=== PATIENT | female | born 1995 | race Two or more races ===

== ENCOUNTER 2018-02-12 12:27 | Emergency (ER) | payer SELFPAY ==
[~2018-02-12] VITALS: Ht 160 cm; Wt 90.7 kg
[2018-02-12 12:45] VITALS: BP 117/67
--- NOTE | 2018-02-12 13:05 | RAD ---
3 view right ankle 02/12/2018 CLINICAL INDICATION: Fall with twisting of the right ankle with pain and swelling. Unable to bear weight. COMPARISON: Right ankle 09/10/2010 FINDINGS: No acute fracture or traumatic malalignment. Joint spaces maintained. Or, mortise and talar dome maintained. Visualized soft tissues are unremarkable. IMPRESSION: No acute osseous abnormality. Electronically signed by: Patrick Nicole MD (02/12/2018 1:02 PM) [id number]
--- NOTE | 2018-02-12 13:22 | PHYS DOC ---
Past Medical History Past Medical History: Other Additional Past Medical Histor: ITP Past Surgical History: Tonsillectomy Alcohol Use: None Drug Use: None Adult General Chief Complaint Chief Complaint: ANKLE PROBLEM HPI HPI Patient is a 22 year old female who presents with pain to her right ankle after she was at [employer] earlier today playing with her daughter in [employer] [place]. She states that she missed a step rolling her ankle. She states that there was a popping sensation. She states that she has injured that ankle previously. She denies loss of consciousness or any other injury. She states that it is too painful to bear weight on that extremity right now. She did not take any [id number] pain medication prior to arrival. Review of Systems Review of Systems Constitutional: Denies fever or chills [] Eyes: Denies change in visual acuity, redness, or eye pain [] HENT: Denies nasal congestion or sore throat [] Respiratory: Denies cough or shortness of breath [] Cardiovascular: No additional information not addressed in HPI [] GI: Denies abdominal pain, nausea, vomiting, bloody stools or diarrhea [] : Denies dysuria or hematuria [] Musculoskeletal: See history of present illness Integument: Denies rash or skin lesions [] Neurologic: Denies headache, focal weakness or sensory changes [] Endocrine: Denies polyuria or polydipsia [] All other systems were reviewed and found to be within normal limits, except as documented in this note. Current Medications Current Medications Current Medications Medications (Trade) Dose Ordered Sig/[facility] Start Time Stop Time Status Last Admin Dose Admin Ibuprofen (Motrin) 800 mg 1X ONCE 02/12/18 13:30 02/12/18 13:31 UNV Allergies Allergies Allergies Coded Allergies Type Severity Reaction Last Updated Verified Penicillins Allergy Intermediate 12/17/14 No Physical Exam Physical Exam Constitutional: Well developed, well nourished, no acute distress, non-toxic appearance. [] HENT: Normocephalic, atraumatic, bilateral external ears normal, oropharynx moist, no oral exudates, nose normal. [] Eyes: PERRLA, EOMI, conjunctiva normal, no discharge. [] Neck: Normal range of motion, no tenderness, supple, no stridor. [] Cardiovascular:Heart rate regular rhythm, no murmur [] Lungs & Thorax: Bilateral breath sounds clear to auscultation [] Abdomen: Bowel sounds normal, soft, no tenderness, no masses, no pulsatile masses. [] Skin: Warm, dry, no erythema, no rash. [] Back: No tenderness, no CVA tenderness. [] Extremities: Right ankle tenderness, no cyanosis, no clubbing, ROM decreased due to pain, no edema or ecchymosis noted. [] Neurologic: Alert and oriented X 3, normal motor function, normal sensory function, no focal deficits noted. [] Psychologic: Affect normal, judgement normal, mood normal. [] Current Patient Data Vital Signs Vital Signs Date Time Temp Pulse Resp B/P (MAP) Pulse Ox O2 Delivery O2 Flow Rate FiO2 02/12/18 12:45 98.2 102 20 117/67 (84) 97 Room Air 98.2 EKG EKG [] Radiology/Procedures Radiology/Procedures []PATIENT: MARGARITO BRADLEY DACCOUNT: [id number]#: [id number] : 1995 LOCATION: ER AGE: 22 SEX: F EXAM STATUS: REG ER ORD. PHYSICIAN: JAMILA PEÑA APRN REASON: fellon a step today, twisted ankle, unable to bear weight PROCEDURE: ANKLE RIGHT 3V 3 view right ankle 02/12/2018 CLINICAL INDICATION: Fall with twisting of the right ankle with pain and swelling. Unable to bear weight. COMPARISON: Right ankle 09/10/2010 FINDINGS: No acute fracture or traumatic malalignment. Joint spaces maintained. Or, mortise and talar dome maintained. Visualized soft tissues are unremarkable. IMPRESSION: No acute osseous abnormality. Electronically signed by: Barney Nicole MD (02/12/2018 1:02 PM) [id number] DICTATED and SIGNED BY: BARNEY NICOLE MD DATE: 02/12/18 1301 Course & Med Decision Making Course & Med Decision Making Pertinent Labs and Imaging studies reviewed. (See chart for details) []The patient was placed in an Liu wrap by the emergency department nurse. Neurovascular status was intact post-application. Dragon Disclaimer Dragon Disclaimer This electronic medical record was generated, in whole or in part, using a voice recognition dictation system. Departure Departure Impression: Primary Impression: Ankle sprain Disposition: 01 HOME, SELF-CARE Condition: STABLE Referrals: DAVID SARMIENTO MD (PCP) FARIBA GODDARD MD Patient Instructions: Ankle Sprain Additional Instructions: RICE the extremity. You may use ibuprofen or Tylenol for pain. Follow-up with your primary care provider for possible referral to orthopedics if not improving in 3 days or return to the emergency department if worsening. JAMILA PEÑA ORTHO ASSISTANT Feb 12, 2018 13:22
[2018-02-12] MEDS ORDERED: IBUPROFEN 400 MG TABLET. PO ONE (13:30)
== END 2018-02-12 13:35 | disposition home or self-care (01) ==
LOC: ER 12:27
DX: S93.491A Sprain of other ligament of right ankle, initial encounter (principal); Z90.89 Acquired absence of other organs; Z88.0 Allergy status to penicillin; X50.1XXA Overexertion from prolonged static or awkward postures, initial encounter; Y93.89 Activity, other specified; Y92.39 Other specified sports and athletic area as the place of occurrence of the external cause; Y99.8 Other external cause status
CPT/HCPCS: 73610; 99284

== ENCOUNTER → 2019-05-15 | Outpatient (CLI) | payer OTHER ==
[2018-12-10 17:10] VITALS: BP 175/87
[~2019-05-15] MED LIST: CLIN150C14 PO
--- NOTE | 2019-05-15 17:28 | KCIC ---
MR of the right knee HISTORY: Positive Maddie. Instability. Medial knee pain. Injury April 19. TECHNIQUE: Routine multiplanar sequences are obtained. FINDINGS: No evidence of medial meniscal tear. No evidence of lateral meniscal tear. Anterior and posterior cruciate ligaments are intact. High-grade tear of the proximal medial collateral ligament. The tear also involves the deep capsular meniscofemoral attachment. Mild edema/hemorrhage along the medial collateral ligament. Iliotibial band unremarkable. Fibular collateral ligament, biceps femoris tendon and popliteus tendon are intact. Patellar tendon and quadriceps tendon are intact. Tearing of the femoral aspect of the medial retinaculum and medial patellofemoral ligament. Trace joint effusion. Subchondral marrow contusion at the posterior nonweightbearing lateral femoral condyle with a minimal impacted subchondral fracture. No aggressive bone destruction. No significant Mcneal's cyst. IMPRESSION: 1. High-grade proximal medial collateral ligament tear. Tearing also involves the femoral attachment of the medial retinaculum and medial patellofemoral ligament. 2. Minimally depressed subchondral fracture at the posterior nonweightbearing lateral femoral condyle. Electronically signed by: Quintin Elder MD (05/15/2019 5:25 PM) [facility]-[id number]
== END | disposition home or self-care (01) ==
LOC: KCIC MRI 15:19
PROVIDERS: ATTEND Physician Assistant Medical
DX: S72.421A Displaced fracture of lateral condyle of right femur, initial encounter for closed fracture (principal); S83.411A Sprain of medial collateral ligament of right knee, initial encounter; S83.8X1A Sprain of other specified parts of right knee, initial encounter; X58.XXXA Exposure to other specified factors, initial encounter; Y93.89 Activity, other specified; Y92.89 Other specified places as the place of occurrence of the external cause; Y99.8 Other external cause status
CPT/HCPCS: 73721

== ENCOUNTER 2020-04-24 12:54 | Emergency (ER) | payer OTHER ==
[~2020-04-24] VITALS: Ht 160 cm; Wt 100.0 kg
[~2020-04-24 12:54] MED LIST changes: -CLIN150C14 PO; +CLIN150C15 PO
[2020-04-24 13:07] VITALS: BP 153/88
[2020-04-24] MEDS ORDERED: methylPREDNISolone SOD SUCC PF 125 MG/2 ML VIAL. IM ONE (13:30)
[2020-04-24] MEDS ORDERED: KETOROLAC 60 MG/2 ML VIAL. IM ONE (13:30)
[2020-04-24] MEDS ORDERED: PRED50TA PO (13:44)
--- NOTE | 2020-04-24 13:45 | PHYS DOC ---
Past Medical History Past Medical History: No Pertinent History, Migraines, Other Additional Past Medical Histor: ITP Past Surgical History: Tonsillectomy Smoking Status: Never Smoker Alcohol Use: None Drug Use: None General Adult EDM: Chief Complaint: HEADACHE HPI: HPI: Patient is a 25 year old female with history of migraine headaches presenting today complaining of 4 out of 10 left-sided migraine headache that has been going on intermittently since Saturday. Patient denies any nausea vomiting. Reports photophobia. Reports this migraine headache is consistent with her chronic migraine headaches. 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 She states this amitriptyline is not helping. Denies this being the worst headache in her life. Denies any vision changes. Review of Systems: Review of Systems: Constitutional: Denies fever or chills. [] Eyes: Denies change in visual acuity. [] HENT: Denies nasal congestion or sore throat. [] Respiratory: Denies cough or shortness of breath. [] Cardiovascular: Denies chest pain or edema. [] GI: Denies abdominal pain, nausea, vomiting, bloody stools or diarrhea. [] : Denies dysuria. [] Musculoskeletal: Denies back pain or joint pain. [] Integument: Denies rash. [] Neurologic: Reports left-sided migraine headache, denies focal weakness or sensory changes. [] Psychiatric: Denies depression or anxiety. [] Heart Score: Risk Factors: Risk Factors: DM, Current or recent (<one month) smoker, HTN, HLP, family history of CAD, obesity. Risk Scores: Score 0 - 3: 2.5% MACE over next 6 weeks - Discharge Home Score 4 - 6: 20.3% MACE over next 6 weeks - Admit for Clinical Observation Score 7 - 10: 72.7% MACE over next 6 weeks - Early Invasive Strategies Current Medications: Current Medications Medications (Trade) Dose Ordered Sig/[facility] Start Time Stop Time Status Last Admin Dose Admin Ketorolac Tromethamine (Toradol Im) 60 mg 1X ONCE 04/24/20 13:30 04/24/20 13:31 DC 04/24/20 13:34 60 MG Methylprednisolone Sodium Succinate (SOLU-Medrol 125MG VIAL) 125 mg 1X ONCE 04/24/20 13:30 04/24/20 13:31 DC 04/24/20 13:34 125 MG Allergies: Allergies: Allergies Coded Allergies Type Severity Reaction Last Updated Verified Penicillins Allergy Intermediate 12/17/14 No Physical Exam: PE: Constitutional: Well developed, well nourished, no acute distress, non-toxic appearance. [] HENT: Normocephalic, atraumatic, bilateral external ears normal, oropharynx moist, no oral exudates, nose normal. [] Eyes: PERRLA, EOMI, conjunctiva normal, no discharge. [] Neck: Normal range of motion, no tenderness, supple, no stridor. [] Cardiovascular:Heart rate regular rhythm, no murmur [] Lungs & Thorax: Bilateral breath sounds clear to auscultation [] Abdomen: Bowel sounds normal, soft, no tenderness, no masses, no pulsatile masses. [] Skin: Warm, dry, no erythema, no rash. [] Back: No tenderness, no CVA tenderness. [] Extremities: No tenderness, no cyanosis, no clubbing, ROM intact, no edema. [] Neurologic: Alert and oriented X 3, normal motor function, normal sensory function, no focal deficits noted. Cranial nerves II through XII intact Psychologic: Affect normal, judgement normal, mood normal. [] Current Patient Data: Vital Signs: Vital Signs Date Time Temp Pulse Resp B/P (MAP) Pulse Ox O2 Delivery O2 Flow Rate FiO2 04/24/20 13:07 98.2 98 18 153/88 (109) 99 98.2 EKG: EKG: [] Radiology/Procedures: Radiology/Procedures: [] Course & Med Decision Making: Course & Med Decision Making Pertinent Labs and Imaging studies reviewed. (See chart for details) This is a 35-year-old female patient with history of migraine headaches pr esenting today complaining of a migraine headache intermittently since Saturday which is 3 days ago. Stretching with triptan with no relief. Was given Toradol and Solu-Medrol in the ED. Instructed to take Benadryl as soon as she gets home. Currently has no nausea or vomiting. Does not have neurological deficits. Discharge to home. Follow-up with PCP in the course of this week Chris Disclaimer: Chris Disclaimer: This electronic medical record was generated, in whole or in part, using a voice recognition dictation system. Departure Departure Impression: Primary Impression: Migraine headache Qualified Codes: G43.009 - Migraine without aura, not intractable, without status migrainosus Disposition: 01 DC HOME SELF CARE/HOMELESS Condition: STABLE Referrals: SARAH MORA PA-C (PCP) follow up in the course of this week Patient Instructions: Migraine Headache, [id number] Additional Instructions: You were evaluated in the emergency room for a migraine headache. Continue taking sumatriptan as needed for the headache. We also put you on a short course of prednisone. You can take it for the next 5 days and see if it helps with headaches. Follow-up with your doctor in the course of this week. Scripts Prednisone (PREDNISONE) 50 Mg Tablet 1 MG PO DAILY, #5 TAB Prov: ELIO POOLE APRN 04/24/20 ELIO POOLE APRN Apr 24, 2020 13:44
== END 2020-04-24 13:47 | disposition home or self-care (01) ==
LOC: ER 12:54
DX: G43.009 Migraine without aura, not intractable, without status migrainosus (principal); H53.149 Visual discomfort, unspecified; Z90.89 Acquired absence of other organs
CPT/HCPCS: 96372; 99284; J1885; J2930

== ENCOUNTER → 2020-04-28 | Outpatient (CLI) | payer OTHER ==
[2020-04-24 13:07] VITALS: BP 153/88
[~2020-04-28] MED LIST changes: +CETI10TA74 PO; +ORPH100T PO; +OXYC1TAB15 PO; +OXYM30SP25 NS; +PRED50TA PO
--- NOTE | 2020-04-28 16:31 | KCIC ---
MRI BRAIN WO Date: 04/28/2020 1:45 PM Indication: Reason: HEADACHE/HEAD INJURY / Spl. Instructions: Some left sided facial tingling. / His tory: Head trauma 11 yrs ago. Chronic chatman's but more intense in recent mths. Comparison: None. Technique: Multiplanar multisequence MRI of the brain was performed without intravenous contrast usin g the standard protocol. Findings: No acute infarct. No acute or chronic hemorrhage. The ventricles are normal in size and configuration without hydrocephalus. The scalp and calvarium are normal. The pituitary and sella are normal. No Chiari malformation. The v isualized upper cervical spine is normal. The visualized orbits and globes are normal. The visualized paranasal sinuses are clear. The mastoid air cells are clear. Normal flow voids within the vertebral, basilar, and internal carotid arteries indicating patency. IMPRESSION: No acute intracranial process. Electronically signed by: Reece Mensah MD (04/28/2020 4:28 PM) [id number]
== END ==
LOC: KCIC MRI 13:14
PROVIDERS: ATTEND Family Medicine
DX: R51.9 Headache, unspecified (principal); Z87.828 Personal history of other (healed) physical injury and trauma
CPT/HCPCS: 70551

== ENCOUNTER → 2020-06-28 | Outpatient (CLI) | payer OTHER ==
[~2020-06-28] MED LIST changes: -CETI10TA74 PO; -ORPH100T PO; -OXYC1TAB15 PO; -OXYM30SP25 NS
--- NOTE | 2020-06-28 16:54 | KCIC ---
EXAMINATION: XR EXAM OF ANKLE_RIGHT 3VIEWS, XR FOOT_RIGHT 3 VIEWS CLINICAL HISTORY: Right foot and ankle pain following twisting injury/fall TECHNIQUE: XR EXAM OF ANKLE_RIGHT 3VIEWS, XR FOOT_RIGHT 3 VIEWS Number of Images/Views: 3 each COMPARISON: Right ankle radiographs 02/12/2018 FINDINGS: Joint spaces and alignment maintained. No acute fracture. Partially visualized tiny ossicle along the lateral aspect of the talus which appears corticated and may be related to remote trauma. Mild soft tissue swelling overlying the lateral malleolus. IMPRESSION: No acute osseous abnormality right foot or ankle. Electronically signed by: Francis Nixon DO (06/28/2020 4:52 PM) [id number]
== END ==
LOC: KCIC 13:15
PROVIDERS: ATTEND Family Medicine
DX: M79.672 Pain in left foot (principal); M25.572 Pain in left ankle and joints of left foot; M79.89 Other specified soft tissue disorders
CPT/HCPCS: 73610; 73630

== ENCOUNTER 2020-08-16 03:57 | Emergency (ER) | payer OTHER ==
[~2020-08-16] VITALS: Ht 157.5 cm; Wt 96.7 kg
[2020-08-16 04:12] VITALS: BP 139/85
--- NOTE | 2020-08-16 04:12 | PHYS DOC ---
Past Medical History Past Medical History: No Pertinent History, Migraines, Other Additional Past Medical Histor: ITP Past Surgical History: Tonsillectomy Smoking Status: Never Smoker Alcohol Use: None Drug Use: None General Adult EDM: Chief Complaint: Congestion HPI: HPI: Patient is a 25 year old [f__sex] who presents with [] Review of Systems: Review of Systems: Fourteen body systems of review of systems have been reviewed. See HPI for pertinent positives and negative responses, other steiner all other systems are negative, non-pertinent or non-contributory Heart Score: Risk Factors: Risk Factors: DM, Current or recent (<one month) smoker, HTN, HLP, family history of CAD, obesity. Risk Scores: Score 0 - 3: 2.5% MACE over next 6 weeks - Discharge Home Score 4 - 6: 20.3% MACE over next 6 weeks - Admit for Clinical Observation Score 7 - 10: 72.7% MACE over next 6 weeks - Early Invasive Strategies Allergies: Allergies: Allergies Coded Allergies Type Severity Reaction Last Updated Verified Penicillins Allergy Intermediate 12/17/14 No Physical Exam: PE: General: Appears well, non toxic, and comfortable Skin: Warm, dry. Normal for ethnicity. HEENT: Atraumatic. PERRLA. Rhinorrhea and congestion. Nasal turbinates boggy b/l. Moist mucous membranes. Uvula midline. Maintaining secretions. No phonation changes. Neck: Trachea midline. Normal ROM. No stridor. Respiratory: Normal WOB. CTAB w/o w/r/r. No tachypnea. Cardiovascular: Regular rate and rhythm. Normal peripheral perfusion. Abdomen: Soft. Non tender. No distension. Back: Normal ROM. Musculoskeletal: No swelling or deformity. Neuro: Alert and oriented x 4. MAEE. Lymph: No cervical LAD. Psych: Normal affect and mood. Current Patient Data: Vital Signs: Vital Signs Date Time Temp Pulse Resp B/P (MAP) Pulse Ox O2 Delivery O2 Flow Rate FiO2 08/16/20 04:12 98.2 81 24 139/85 (103) 98 Room Air 98.2 Vital Signs Date Time Temp Pulse Resp B/P (MAP) Pulse Ox O2 Delivery O2 Flow Rate FiO2 08/16/20 04:12 98.2 81 24 139/85 (103) 98 Room Air 98.2 EKG: EKG: [] Radiology/Procedures: Radiology/Procedures: [] Course & Med Decision Making: Course & Med Decision Making Pertinent Labs and Imaging studies reviewed. (See chart for details) [] [place] Disclaimer: Chris Disclaimer: This electronic medical record was generated, in whole or in part, using a voice recognition dictation system. Departure Departure Impression: Primary Impression: Viral syndrome Additional Impression: Right otitis media Disposition: HOME / SELF CARE / HOMELESS Condition: STABLE Referrals: JONE AVINA MD (PCP) Patient Instructions: Viral Syndrome Additional Instructions: You were seen for symptoms classic of an upper respiratory tract infection. You can use an OTC sinus rinse to help with sinus congestion. You have been prescribed x2 different medications which will help with nasal congestion and overall symptoms. Your cough may persist for a few weeks but your other symptoms should gradually improve. You should make sure to drink plenty of fluids. You should return to the ED if you develop worsening cough, shortness of breath, chest pain, or any other new or concerning symptoms. Scripts Oxymetazoline Hcl (AFRIN) 30 Ml [place] 30 ML NS 1-2XD for NASAL CONGESTION for 2 Days, #1 SPRAY Prov: YOLANDA WALTERS DO 08/16/20 Cetirizine Hcl (ZYRTEC) 10 Mg Tablet 1 TAB PO DAILY, #30 TAB 0 Refills Prov: YOLANDA WALTERS DO 08/16/20 YOLANDA WALTERS DO August 16, 2020 04:12
[2020-08-16] MEDS ORDERED: CETI10TA74 PO (04:46)
[2020-08-16] MEDS ORDERED: OXYM30SP25 NS (04:46)
== END 2020-08-16 04:55 | disposition home or self-care (01) ==
LOC: ER 03:57
DX: B34.9 Viral infection, unspecified (principal); H66.91 Otitis media, unspecified, right ear; G43.909 Migraine, unspecified, not intractable, without status migrainosus; Z88.0 Allergy status to penicillin
CPT/HCPCS: 99282

== ENCOUNTER → 2020-08-29 | Outpatient (CLI) | payer OTHER ==
[2020-08-16 04:12] VITALS: BP 139/85
[~2020-08-29] MED LIST changes: +CETI10TA74 PO; +OXYM30SP25 NS
--- NOTE | 2020-08-29 13:33 | KCIC ---
EXAM: Right foot, 3 views. HISTORY: Pain. COMPARISON: None. FINDINGS: 3 views of the right foot are obtained. There is no fracture, dislocation or subluxation. IMPRESSION: No acute osseous finding. Electronically signed by: Zenaida Sutton MD (08/29/2020 1:30 PM) [id number]
== END ==
LOC: KCIC 12:38
PROVIDERS: ATTEND Family Medicine
DX: M79.671 Pain in right foot (principal)
CPT/HCPCS: 73630

== ENCOUNTER 2020-09-06 03:16 | Emergency (ER) | payer OTHER ==
[~2020-09-06] VITALS: Ht 157.5 cm; Wt 96.4 kg
[2020-09-06 03:57] LABS: BILIRUBIN,URINE NEGATIVE (NEG); CLARITY,URINE CLEAR; COLOR,URINE YELLOW; NITRITE,URINE NEGATIVE (NEG); PROTEIN,URINE NEGATIVE (NEG-TRACE); UROBILINOGEN,URINE 0.2 mg/dL (0.2 mg/dL)
[2020-09-06 04:05] LABS: BACTERIA,URINE 0 /HPF (0-FEW); RBC,URINE 0 /HPF (0-2); WBC,URINE OCC /HPF (0-4)
--- NOTE | 2020-09-06 04:46 | RAD ---
INDICATION: Reason: severe pelvic pain, IUD in place / Spl. Instructions: / History: . Last menstru al period was 08/25/2020. COMPARISON: None available. TECHNIQUE: Endovaginal sonography was performed FINDINGS: The uterus measures 7.2 x 4.9 x 3.9 cm. The endometrium measures 0.6 cm on endovaginal images. IUD is seen within the endometrium. There is no focal myometrial abnormality The right ovary measures 3.5 x 3 x 2.4 cm on endovaginal images. The left ovary measures 3.6 x 1.8 x 1.7 cm on endovaginal images. Flow is seen to both ovaries, no evidence for torsion. Small volume complex free fluid is seen adjacent to the right ovary. IMPRESSION: 1. Small volume complex free fluid is seen adjacent to the right ovary, uncertain clinical significa nce, possibly hemorrhagic or proteinaceous contents. 2. No sonographic evidence for ovarian torsion. Electronically signed by: Messi Quintero MD (09/06/2020 4:44 AM) ELVIN
[2020-09-06] MEDS ORDERED: KETOROLAC 60 MG/2 ML VIAL. IM ONE (05:00)
[2020-09-06] MEDS ORDERED: OXYC1TAB15 PO (05:20)
--- NOTE | 2020-09-06 05:20 | ED.ADGEN ---
Past Medical History Past Medical History: GERD, Migraines, Other Additional Past Medical Histor: ITP Past Surgical History: Tonsillectomy Smoking Status: Never Smoker Alcohol Use: Occasionally Drug Use: None General Adult EDM: Chief Complaint: ABDOMINAL PAIN HPI: HPI: Patient is a 25 year old [f__sex] who presents with [] Review of Systems: Review of Systems: Constitutional: Denies fever or chills. [] Eyes: Denies change in visual acuity. [] HENT: Denies nasal congestion or sore throat. [] Respiratory: Denies cough or shortness of breath. [] Cardiovascular: Denies chest pain or edema. [] GI: Denies abdominal pain, nausea, vomiting, bloody stools or diarrhea. [] : Denies dysuria. [] Musculoskeletal: Denies back pain or joint pain. [] Integument: Denies rash. [] Neurologic: Denies headache, focal weakness or sensory changes. [] Endocrine: Denies polyuria or polydipsia. [] Lymphatic: Denies swollen glands. [] Psychiatric: Denies depression or anxiety. [] Current Medications: Current Medications Medications (Trade) Dose Ordered Sig/[facility] Start Time Stop Time Status Last Admin Dose Admin Ketorolac Tromethamine (Toradol Im) 60 mg 1X ONCE 09/06/20 05:00 09/06/20 05:01 DC 09/06/20 05:02 60 MG Allergies: Allergies: Allergies Coded Allergies Type Severity Reaction Last Updated Verified Penicillins Allergy Intermediate 12/17/14 No Physical Exam: PE: Constitutional: Well developed, well nourished, no acute distress, non-toxic ap pearance. [] HENT: Normocephalic, atraumatic, bilateral external ears normal, oropharynx moist, no oral exudates, nose normal. [] Eyes: PERRLA, EOMI, conjunctiva normal, no discharge. [] Neck: Normal range of motion, no tenderness, supple, no stridor. [] Cardiovascular:Heart rate regular rhythm, no murmur [] Lungs & Thorax: Bilateral breath sounds clear to auscultation [] Abdomen: Bowel sounds normal, soft, no tenderness, no masses, no pulsatile masses. [] Skin: Warm, dry, no erythema, no rash. [] Back: No tenderness, no CVA tenderness. [] Extremities: No tenderness, no cyanosis, no clubbing, ROM intact, no edema. [] Neurologic: Alert and oriented X 3, normal motor function, normal sensory function, no focal deficits noted. [] Psychologic: Affect normal, judgement normal, mood normal. [] Current Patient Data: Labs: Laboratory Tests Test 09/06/20 03:41 09/06/20 03:43 Urine Collection Type Unknown Urine Color Yellow Urine Clarity Clear Urine pH 6.0 (<5.0-8.0) Urine Specific [place] >=1.030 (1.000-1.030) Urine Protein Negative mg/dL (NEG-TRACE) Urine Glucose (UA) Negative mg/dL (NEG) Urine Ketones (Stick) Negative mg/dL (NEG) Urine Blood Negative (NEG) Urine Nitrite Negative (NEG) Urine Bilirubin Negative (NEG) Urine Urobilinogen Dipstick 0.2 mg/dL (0.2 mg/dL) Urine Leukocyte Esterase Negative (NEG) Urine RBC 0 /HPF (0-2) Urine WBC Occ /HPF (0-4) Urine Squamous Epithelial Cells Mod /LPF Urine Bacteria 0 /HPF (0-FEW) Urine Mucus Mod /LPF POC Urine HCG, Qualitative Hcg negative (Negative) Vital Signs: Vital Signs Date Time Temp Pulse Resp B/P (MAP) Pulse Ox O2 Delivery O2 Flow Rate FiO2 09/06/20 03:30 98.0 89 18 123/74 (90) 97 Room Air 98.0 EKG: EKG: [] Heart Score: C/O Chest Pain: N/A Risk Factors: Risk Factors: DM, Current or recent (<one month) smoker, HTN, HLP, family history of CAD, obesity. Risk Scores: Score 0 - 3: 2.5% MACE over next 6 weeks - Discharge Home Score 4 - 6: 20.3% MACE over next 6 weeks - Admit for Clinical Observation Score 7 - 10: 72.7% MACE over next 6 weeks - Early Invasive Strategies Radiology/Procedures: Radiology/Procedures: [] Course & Med Decision Making: Course & Med Decision Making Pertinent Labs and Imaging studies reviewed. (See chart for details) [] Dragon Disclaimer: Dragon Disclaimer: This electronic medical record was generated, in whole or in part, using a voice recognition dictation system. Departure Departure Impression: Primary Impression: Pelvic cramping Disposition: HOME / SELF CARE / HOMELESS Condition: STABLE Referrals: JONE AVINA MD (PCP) Patient Instructions: Pelvic Pain, Female Scripts Oxycodone/Apap 5-325 (PERCOCET 5-325 MG TABLET ) 1 Each Tablet 1 TAB PO PRN Q6HRS PRN for PAIN, #5 TAB 0 Refills Prov: DARIUS HOLLIS MD 09/06/20 DARIUS HOLLIS MD Sep 06, 2020 05:20
[2020-09-06] MEDS ORDERED: oxyCODONE/APAP 5/325 1 TAB TABLET PO ONE (05:30)
[2020-09-06 05:41] VITALS: BP 111/65
== END 2020-09-06 05:46 | disposition home or self-care (01) ==
LOC: ER 03:16
DX: R10.2 Pelvic and perineal pain (principal); K21.9 Gastro-esophageal reflux disease without esophagitis; G43.909 Migraine, unspecified, not intractable, without status migrainosus; Z88.0 Allergy status to penicillin
CPT/HCPCS: 76830; 81001; 81025; 96372; 99284; J1885

== ENCOUNTER 2020-09-08 20:15 | Emergency (ER) | payer OTHER ==
[~2020-09-08] VITALS: Ht 157.5 cm; Wt 99.1 kg
[~2020-09-08 20:15] MED LIST changes: +OXYC1TAB15 PO
[2020-09-08 20:35] LABS: BILIRUBIN,URINE NEGATIVE (NEG); CLARITY,URINE CLEAR; COLOR,URINE YELLOW; NITRITE,URINE NEGATIVE (NEG); PROTEIN,URINE NEGATIVE (NEG-TRACE)
[2020-09-08 20:44] LABS: BACTERIA,URINE 0 /HPF (0-FEW); RBC,URINE RARE /HPF (0-2); WBC,URINE 0 /HPF (0-4)
--- NOTE | 2020-09-08 20:54 | PHYS DOC ---
Past Medical History Past Medical History: GERD, Migraines, Other Additional Past Medical Histor: ITP Past Surgical History: Tonsillectomy Smoking Status: Never Smoker Alcohol Use: Occasionally Drug Use: None General Adult EDM: Chief Complaint: FLANK PAIN HPI: HPI: Patient is a 25 year old [f__sex] who presents with [] Review of Systems: Review of Systems: Constitutional: Denies fever or chills. [] Eyes: Denies change in visual acuity. [] HENT: Denies nasal congestion or sore throat. [] Respiratory: Denies cough or shortness of breath. [] Cardiovascular: Denies chest pain or edema. [] GI: Denies abdominal pain, nausea, vomiting, bloody stools or diarrhea. [] : Denies dysuria. [] Musculoskeletal: Denies back pain or joint pain. [] Integument: Denies rash. [] Neurologic: Denies headache, focal weakness or sensory changes. [] Endocrine: Denies polyuria or polydipsia. [] Lymphatic: Denies swollen glands. [] Psychiatric: Denies depression or anxiety. [] Heart Score: Risk Factors: Risk Factors: DM, Current or recent (<one month) smoker, HTN, HLP, family history of CAD, obesity. Risk Scores: Score 0 - 3: 2.5% MACE over next 6 weeks - Discharge Home Score 4 - 6: 20.3% MACE over next 6 weeks - Admit for Clinical Observation Score 7 - 10: 72.7% MACE over next 6 weeks - Early Invasive Strategies Allergies: Allergies: Allergies Coded Allergies Type Severity Reaction Last Updated Verified Penicillins Allergy Intermediate 12/17/14 No Physical Exam: PE: Constitutional: Well developed, well nourished, no acute distress, non-toxic appearance. [] HENT: Normocephalic, atraumatic, bilateral external ears normal, oropharynx moist, no oral exudates, nose normal. [] Eyes: PERRLA, EOMI, conjunctiva normal, no discharge. [] Neck: Normal range of motion, no tenderness, supple, no stridor. [] Cardiovascular:Heart rate regular rhythm, no murmur [] Lungs & Thorax: Bilateral breath sounds clear to auscultation [] Abdomen: Bowel sounds normal, soft, no tenderness, no masses, no pulsatile masses. [] Skin: Warm, dry, no erythema, no rash. [] Back: No tenderness, no CVA tenderness. [] Extremities: No tenderness, no cyanosis, no clubbing, ROM intact, no edema. [] Neurologic: Alert and oriented X 3, normal motor function, normal sensory func tion, no focal deficits noted. [] Psychologic: Affect normal, judgement normal, mood normal. [] Current Patient Data: Labs: Laboratory Tests Test 09/08/20 20:20 09/08/20 20:23 Urine Collection Type Unknown Urine Color Yellow Urine Clarity Clear Urine pH 7.0 (<5.0-8.0) Urine Specific [place] 1.020 (1.000-1.030) Urine Protein Negative mg/dL (NEG-TRACE) Urine Glucose (UA) Negative mg/dL (NEG) Urine Ketones (Stick) Negative mg/dL (NEG) Urine Blood Negative (NEG) Urine Nitrite Negative (NEG) Urine Bilirubin Negative (NEG) Urine Urobilinogen Dipstick 1.0 mg/dL (0.2 mg/dL) Urine Leukocyte Esterase Negative (NEG) Urine RBC Rare /HPF (0-2) Urine WBC 0 /HPF (0-4) Urine Squamous Epithelial Cells Mod /LPF Urine Bacteria 0 /HPF (0-FEW) POC Urine HCG, Qualitative Hcg negative (Negative) EKG: EKG: [] Radiology/Procedures: Radiology/Procedures: [] Course & Med Decision Making: Course & Med Decision Making Pertinent Labs and Imaging studies reviewed. (See chart for details) [] Dragon Disclaimer: Dragon Disclaimer: This electronic medical record was generated, in whole or in part, using a voice recognition dictation system. Departure Departure Impression: Primary Impression: Left flank pain Disposition: HOME / SELF CARE / HOMELESS Condition: STABLE Referrals: JONE AVINA MD (PCP) Patient Instructions: Flank Pain, [id number] Additional Instructions: Use [id number] ibuprofen and/or Tylenol for pain or discomfort. May ice area of discomfort 20 minutes on then leave off next 20 minutes. Repeat several times daily for the next few days. May also introduce heat. Scripts Orphenadrine Citrate (ORPHENADRINE CITRATE) 100 Mg Tablet.er 100 MG PO BID PRN for MUSCLE PAIN, #14 TAB Prov: BLANCO BRIONES DO 09/08/20 BLANCO BRIONES DO Sep 08, 2020 20:54
[2020-09-08] MEDS ORDERED: METOCLOPRAMIDE HCL 10 MG/2 ML VIAL. IVP ONE (21:00)
[2020-09-08] MEDS ORDERED: KETOROLAC 15 MG/ML VIAL. IVP ONE (21:00)
[2020-09-08] MEDS ORDERED: IV NORMAL SALINE 1000ML BAG 1,000 ML IV ONE (21:00)
--- NOTE | 2020-09-08 21:59 | RAD ---
Study: CT abdomen/pelvis without intravenous contrast Indication: Left flank pain. Comparison: 11/29/2011 Technique: Helical CT imaging performed of the abdomen and pelvis without the use of intravenous cont rast. Sagittal and coronal reformats were obtained. One or more of the following individualized dose reduction techniques were utilized for this examinat ion: 1. Automated exposure control 2. Adjustment of the mA and/or kV according to patient size 3. Use of iterative reconstruction technique. Findings: Inherently limited evaluation without intravenous contrast. No significant abnormality at the lower chest. Diffuse hepatic steatosis. No CT manifestations of acute cholecystitis. Nondilated biliary tree. Unre markable pancreas. Upper limits of normal size of the spleen. No adrenal gland mass. Punctate nonobstructing intrarenal stone at the lower aspect of the right kidney, image 95 series 2. No hydronephrosis. No stone seen within either ureter. Unremarkable urinary bladder. Intrauterine con traceptive device. The device is somewhat eccentric within the uterus but the study is not tailored t o assess for adequate positioning. There may be a right ovarian cyst, image 180 series 2, but this is not atypical for patient age. Incompletely formed stool within the colon typical of a diarrheal state. Normal appendix. Nonobstruct ed small bowel. Unremarkable stomach. Nonaneurysmal aorta. No lymphadenopathy. No significant volume free fluid. No pneumoperitoneum. No acute or aggressive osseous process. Impression: 1. Tiny nonobstructing intrarenal stone on the right. No hydronephrosis or stone within either urete r or the urinary bladder. 2. Intrauterine contraceptive device eccentrically positioned within the uterus. It is difficult to discern if this is malpositioned. Eventual ultrasound could be performed to better characterize. 3. Diffuse hepatic steatosis. Upper limits of normal size of the spleen. Next finding completely for med stool within the colon suggesting a diarrheal state. No bowel obstruction. Electronically signed by: RAIZA ONOFRE MD (09/08/2020 9:57 PM) [facility] [place]
[2020-09-08 22:25] LABS: BASO # 0.1 x10^3/uL (0.0-0.2); BASO % 1 % (0-3); EOS # 0.1 x10^3/uL (0.0-0.7); EOS % 1 % (0-3); HEMATOCRIT 39.4 % (36.0-47.0); HEMOGLOBIN 13.8 g/dL (12.0-15.5); LYMPH % 28 % (24-48); MEAN CORPUSCULAR HEMOGLOBIN 30 pg (25-35); MEAN CORPUSCULAR HGB CONC 35 g/dL (31-37); MEAN CORPUSCULAR VOLUME 86 fL (79-100); MONO # 0.8 x10^3/uL (0.0-1.1); MONO % 8 % (0-9); NEUT # 6.7 x10^3/uL (1.8-7.7); NEUT % 62 % (31-73); PLATELET COUNT 231 x10^3/uL (140-400); RED BLOOD COUNT 4.55 x10^6/uL (3.50-5.40); WHITE BLOOD COUNT 10.7 x10^3/uL (4.0-11.0)
[2020-09-08 22:33] LABS: CALCIUM 8.7 mg/dL (8.5-10.1); CREATININE 0.8 mg/dL (0.6-1.0); POTASSIUM 4.7 mmol/L (3.5-5.1)
[2020-09-08 22:38] LABS: ALBUMIN 3.8 g/dL (3.4-5.0); ALBUMIN/GLOBULIN RATIO 1.1 (1.0-1.7); MAGNESIUM 2.2 mg/dL (1.8-2.4); TOTAL BILIRUBIN 0.5 mg/dL (0.2-1.0); TOTAL PROTEIN 7.2 g/dL (6.4-8.2)
[2020-09-08] MEDS ORDERED: ORPH100T PO (22:46)
== END 2020-09-08 23:30 | disposition home or self-care (01) ==
LOC: ER 20:15
DX: R10.9 Unspecified abdominal pain (principal); K21.9 Gastro-esophageal reflux disease without esophagitis; G43.909 Migraine, unspecified, not intractable, without status migrainosus; Z88.0 Allergy status to penicillin
CPT/HCPCS: 36415; 74176; 80053; 81001; 81025; 83690; 83735; 85025; 96361; 96374; 96375; 99284; J1885; J2765; J7030

== ENCOUNTER 2020-09-23 07:21 | Day surgery (SDC) | payer OTHER ==
[~2020-09-23] VITALS: Ht 160 cm; Wt 98.5 kg
[~2020-09-23 07:21] MED LIST changes: +HYDROmorphone 2 MG/ML VIAL IVP PRN; +IV RINGERS,LACTATED 1000ML 1,000 ML IV SCH; +MORPHINE SULFATE 2 MG/ML VIAL. IVP PRN; +ORPH100T PO; +PROCHLORPERAZINE 10 MG/2 ML VIAL. IVP PRN; +fentaNYL PF VIAL 100 MCG/2 ML VIAL IVP PRN
[2020-09-23] MEDS ORDERED: FAMO40TA4 PO (07:40)
[2020-09-23] MEDS ORDERED: PARO20TA3 PO (07:40)
[2020-09-23] MEDS ORDERED: ALPR0.5T6 PO (07:40)
[2020-09-23] MEDS ORDERED: AMIT50TA PO (07:40)
[2020-09-23] MEDS ORDERED: BUPIVACAINE-EPI 0.25% 30 ML VIAL KIT. ONE (07:58)
[2020-09-23] MEDS ORDERED: NEOMY/BACITR/POLYMYXIN OINT PACKET. TP ONE ×4 (07:58→08:05)
[2020-09-23] MEDS ORDERED: ACETAMINOPHEN 500 MG TABLET PO ONE (08:00)
[2020-09-23] MEDS ORDERED: fentaNYL PF VIAL 100 MCG/2 ML VIAL ONE ×2 (08:19→09:10)
[2020-09-23] MEDS ORDERED: MIDAZOLAM HCL/PF 2 MG/2 ML VIAL. ONE (08:19)
[2020-09-23] MEDS ORDERED: KETOROLAC 30 MG/ML VIAL. ONE (08:55)
[2020-09-23] MEDS ORDERED: LIDOCAINE 2% PF 5 ML VIAL. ONE (08:55)
[2020-09-23] MEDS ORDERED: PROPOFOL 10 MG/ML (20ML) VIAL. IV ONE (08:55)
[2020-09-23] MEDS ORDERED: SEVOFLURANE 31 TO 60 MINUTES. IH ONE (08:55)
--- NOTE | 2020-09-23 08:56 | PDOC4 ---
Operative Note Operative Note Date: September 232020 at 855 Preoperative diagnosis internal hemorrhoids Postoperative diagnosis: Same Procedure: Hemorrhoidectomy Surgeon: Hasmukh Specimen: Hemorrhoid Dictation: Patient is 25-year-old female is complained of protruding hemorrhoids with bleeding and pain. Procedure of hemorrhoidectomy was explained to the patient detail risk benefits were also discussed including bleeding infection alternatives to this procedure also discussed with the patient who seemed to understand and gave a verbal written consent to have procedure performed. Patient was taken to the operating room placed the supine position general anesthesia was initiated once patient was sleeping intubated he was repositioned into the lithotomy positioning and her peritoneum was prepped and draped usual sterile fashion using Betadine scrub and solution. A speculum was inserted into the anus and inspected there was a internal hemorrhoid at the 6 o'clock position area around this was injected with quarter percent Marcaine with epinephrine the hemorrhoid was grasped with an Allis clamp and excised sharply with the harmonic scalpel. The wound was then dressed with antibiotic ointment 4 x 4's and mesh briefs. Patient was repositioned supine position awakened and extubated in the operating room taken to recovery in stable condition all sponge instrument needle counts listed as correct estimated blood loss 5 mL BALAJI ALFRED MD Sep 23, 2020 08:56
--- NOTE | 2020-09-23 08:58 | DISCH ---
DISCHARGE INSTRUCTIONS Condition on Discharge Condition on Discharge: Stable Activity After Discharge Activity Instructions for Disc: Avoid exertion Other activity instructions: May shower in 24 hours Diet after Discharge Diet after Discharge: Regular Contacting the DRChava after DC Call your doctor for: If your condition worsens Follow-Up Follow up with: Dr. Alfred in 2 weeks BALAJI ALFRED MD Sep 23, 2020 08:58
[2020-09-23] MEDS: fentaNYL PF VIAL 100 MCG/2 ML VIAL IVP PRN ×2 (09:14→09:26)
[2020-09-23] MEDS ORDERED: OXYC-325 PO (09:17)
[2020-09-23] MEDS ORDERED: oxyCODONE/APAP 5/325 1 TAB TABLET PO ONE (09:30)
[2020-09-23] MEDS ORDERED: oxyCODONE/APAP 5/325 1 TAB TABLET PO PRN (09:30)
[2020-09-23 09:45] VITALS: BP 135/78
--- NOTE | 2020-09-26 19:18 | PATHOLOGY ---
[facility] Accession Number: [id number] . 01 Material submitted: . hemorrhoids - HEMORRHOIDS . 01 Clinical history: . HEMORRHOIDS WITH COMPLICATIONS HEMORRHOIDECTOMY . 02 Diagnosis: Segment of skin and anorectal mucosa and underlying fibromuscular tissue, hemorrhoidectomy: - Hemorrhoids showing focal chronic inflammation. (JPM:natalie 09/26/2020) QMS 09/26/2020 1118 Local . 02 Electronically signed: . Dylan Haines MD, Pathologist NPI- [id number] . 01 Gross description: . Received in formalin labeled "Sandoval, Marce, hemorrhoids" is an irregular, red-purple portion of skin measuring 1.9 x 1.2 x 0.9 cm. The surgical resection margin is inked black the specimen is serially sectioned to reveal spongy, red-purple cut surface. Specimen is entirely submitted in cassette A1. ([facility]; 09/24/2020) GZA/GZA 09/24/2020 1036 Local . 02 Pathologist provided ICD-10: K64.9 . 02 CPT . 775271 Specimen Comment: A courtesy copy of this report has been sent to [phone], [phone] Specimen Comment: [id number] Specimen Comment: Report sent to / Specimen Comment: A duplicate report has been generated due to demographic updates. Performed at: 01 [facility] [address], [place] [id number] MD Dre Adrian MD Phone: [phone] Performed at: 02 [facility] [address] [place], [place] [id number] MD Dylan Haines MD Phone: [phone]
== END 2020-09-23 10:15 | disposition home or self-care (01) ==
LOC: SURG 07:21
PROVIDERS: ATTEND Surgery
DX: K64.8 Other hemorrhoids (principal); K21.9 Gastro-esophageal reflux disease without esophagitis; F41.9 Anxiety disorder, unspecified; F32.9 Major depressive disorder, single episode, unspecified; Z72.89 Other problems related to lifestyle; Z79.899 Other long term (current) drug therapy; Z98.890 Other specified postprocedural states; Z88.0 Allergy status to penicillin; Z88.8 Allergy status to other drugs, medicaments and biological substances
CPT/HCPCS: 46255; 81025; A4930; A6253; J1885; J1956; J2250; J2704; J3010; A4223